=== PATIENT | female | born 1980 | race Caucasian/White ===

== ENCOUNTER 2017-06-19 08:50 | Emergency (ER) | payer OTHER ==
[~2017-06-19] VITALS: Ht 162.6 cm; Wt 68.0 kg
--- NOTE | 2017-06-19 09:43 | NUR ---
Patient discharged to home in stable conditon. Written and verbal after care instructions given. Patient verbalizes understanding of instructions.
== END 2017-06-19 09:44 | disposition home or self-care (01) ==
LOC: ER 08:50
DX: I88.9 Nonspecific lymphadenitis, unspecified (principal)
CPT/HCPCS: A4663

== ENCOUNTER 2017-11-08 16:37 | Emergency (ER) | payer SELFPAY ==
[~2017-11-08] VITALS: Ht 165.1 cm; Wt 54.4 kg
--- NOTE | 2017-11-08 17:55 | NUR ---
Dr cardona at the bedside for MSE.
[2017-11-08] MEDS ORDERED: KETOROLAC TROMETHAMINE 60 MG INJ IM ONE ×2 (17:58→18:31)
[2017-11-08 19:25] LABS: *URINE HCG, QUAL NEGATIVE (NEGATIVE)
--- NOTE | 2017-11-08 20:54 | NUR ---
Gave pt RX and d/c instructions, verbalized understanding.
== END 2017-11-08 20:56 | disposition home or self-care (01) ==
LOC: ER 16:37
DX: S16.1XXA Strain of muscle, fascia and tendon at neck level, initial encounter (principal); S39.012A Strain of muscle, fascia and tendon of lower back, initial encounter; X58.XXXA Exposure to other specified factors, initial encounter; Y93.89 Activity, other specified; Y92.89 Other specified places as the place of occurrence of the external cause; Y99.8 Other external cause status
CPT/HCPCS: 72100; 84703; A4663; J1885

== ENCOUNTER 2019-01-30 13:06 | Emergency (ER) | payer OTHER ==
[~2019-01-30] VITALS: Ht 165.1 cm; Wt 72.6 kg
--- NOTE | 2019-01-30 13:20 | NUR ---
PT IS IN ROOM #2A. DR GOMEZ EVALUATED THE PT.
[2019-01-30 14:00] VITALS: BP 128/78
--- NOTE | 2019-01-30 14:00 | NUR ---
PT WAS D/C'd TO HOME. D/C INSTRUCTIONS GIVEN TO THE PT.
== END 2019-01-30 14:01 | disposition home or self-care (01) ==
LOC: ER 13:06
DX: S63.611A Unspecified sprain of left index finger, initial encounter (principal); W23.0XXA Caught, crushed, jammed, or pinched between moving objects, initial encounter; Y93.89 Activity, other specified; Y92.89 Other specified places as the place of occurrence of the external cause; Y99.8 Other external cause status
CPT/HCPCS: 73130; A4663